=== PATIENT | female | born 1940 | race Caucasian/White ===

== ENCOUNTER 2018-09-20 10:22 | Emergency (ER) | payer MEDICARE ==
[~2018-09-20] VITALS: Ht 162.6 cm; Wt 61.2 kg
--- OUTSIDE RECORDS SUMMARY | ~2018-09-20 | XMS | Encounter Summary ---
Demographics + + + | Address | [address] | | | [place] [address] | + + + | Home Phone | | + + + | Preferred Language | Unknown | + + + | Marital Status | | + + + | Holiness Affiliation | 1041 | + + + | Race | Unknown | + + + | Ethnic Group | Unknown | + + + Author + + + | Author | [facility] | | | and [place] | + + + | Organization | [facility] | | | and [place] | + + + | Address | Unknown | + + + | Phone | Unavailable | + + + Support + + + + + | Name | Relationship | Address | Phone | + + + + + | Reji Luna | ECON | [address] | | | | [address], [place] | | | | | [address] | | + + + + + Care Team Providers + +------+ + | Care Meat Clerk Name | Role | Phone | + +------+ + | Majo Braswell | PCP | | + +------+ + Encounter Details +--------+ + + + + | Date | Type | Department | Care Team | Description | +--------+ + + + + | 07/28/ | Abstract | [facility] | Cristal Mccoy, | | | 2019 | | NEPHROLOGY [address] | MD [address] | | | | | [address] | [address] [place] | | | | | [place], [place] | [place] [address] | | | | | [address] | [phone] | | | | | [phone] | | | +--------+ + + + + Social History + + + +--------+------+ | Tobacco Use | Types | Packs/Day | Years | Date | | | | | Used | | + + + +--------+------+ | Former Smoker | Cigarettes | 0.3 | 1 | | + + + +--------+------+ + +---+---+---+ | Smokeless Tobacco: | | | | | Never Used | | | | + +---+---+---+ + + +---------+ + | Alcohol Use | Drinks/We | oz/Week | Comments | | | ek | | | + + +---------+ + | No | | | | + + +---------+ + + + + | Sex Assigned at | Date Recorded | | | | + + + | Not on file | | + + + + + + + | Job Start Date | Occupation | Industry | + + + + | Not on file | Not on file | Not on file | + + + + + + + + | Travel History | Travel Start | Travel End | + + + + + + | No recent travel history available. | + + documented as of this encounter Plan of Treatment +--------+---------+ + + + | Date | Type | Specialty | Care Team | Description | +--------+---------+ + + + | 08/15/ | Office | Nephrology | Cristal Mccoy W, | | | 2019 | Visit | | MD Tegan Jones | | | | | | [address] [place] | | | | | | [place] [address] | | | | | | [phone] | | | | | | | | +--------+---------+ + + + documented as of this encounter Procedures + +--------+ + + + | Procedure Name | Priori | Date/Time | Associated Diagnosis | Comments | | | ty | | | | + +--------+ + + + | EXTERNAL LAB: BUN | Routin | 07/27/2018 | | Results for this | | | e | | | procedure are in the | | | | | | results section. | + +--------+ + + + | EXTERNAL LAB: | Routin | 07/27/2018 | | Results for this | | GLUCOSE | e | | | procedure are in the | | | | | | results section. | + +--------+ + + + | EXTERNAL LAB: | Routin | 07/27/2018 | | Results for this | | ALBUMIN | e | | | procedure are in the | | | | | | results section. | + +--------+ + + + | EXTERNAL LAB: | Routin | 07/27/2018 | | Results for this | | PHOSPHORUS | e | | | procedure are in the | | | | | | results section. | + +--------+ + + + | EXTERNAL LAB: | Routin | 07/27/2018 | | Results for this | | CALCIUM | e | | | procedure are in the | | | | | | results section. | + +--------+ + + + | EXTERNAL LAB: CARBON | Routin | 07/27/2018 | | Results for this | | DIOXIDE | e | | | procedure are in the | | | | | | results section. | + +--------+ + + + | EXTERNAL LAB: | Routin | 07/27/2018 | | Results for this | | CHLORIDE | e | | | procedure are in the | | | | | | results section. | + +--------+ + + + | EXTERNAL LAB: | Routin | 07/27/2018 | | Results for this | | POTASSIUM | e | | | procedure are in the | | | | | | results section. | + +--------+ + + + | EXTERNAL LAB: SODIUM | Routin | 07/27/2018 | | Results for this | | | e | | | procedure are in the | | | | | | results section. | + +--------+ + + + | EXTERNAL LAB: | Routin | 07/27/2018 | | Results for this | | VITAMIN D, | e | | | procedure are in the | | 25-HYDROXY | | | | results section. | + +--------+ + + + | EXTERNAL LAB: PTH, | Routin | 07/27/2018 | | Results for this | | INTACT | e | | | procedure are in the | | | | | | results section. | + +--------+ + + + | EXTERNAL LAB: CBC | Routin | 07/27/2018 | | Results for this | | | e | | | procedure are in the | | | | | | results section. | + +--------+ + + + | EXTERNAL LAB: ARIANA | Routin | 07/27/2018 | | Results for this | | | e | | | procedure are in the | | | | | | results section. | + +--------+ + + + | EXTERNAL LAB: | Routin | 07/27/2018 | | Results for this | | CREATININE | e | | | procedure are in the | | | | | | results section. | + +--------+ + + + documented in this encounter Results External Lab: PTH, Intact (07/27/2018) + + + + + + | Component | Value | Ref Range | Performed | Pathologist | | | | | At | Signature | + + + + + + | PTH Intact, | 97.94 (A) | 12 - 88 | | | | External | | | | | + + + + + + + + | Specimen | + + | | + + External Lab: ROSAS (07/27/2018) + +-------+ + + + | Component | Value | Ref Range | Performed | Pathologist | | | | | At | Signature | + +-------+ + + + | ROSAS, | 29 | | EXTERNAL | | | External | | | LAB | | + +-------+ + + + + +---------+ + + | Performing | Address | City/State/Zipcode | Phone Number | | Organization | | | | + +---------+ + + | EXTERNAL LAB | | | | + +---------+ + + External Lab: Glucose (07/27/2018) + +-------+ + + + | Component | Value | Ref Range | Performed | Pathologist | | | | | At | Signature | + +-------+ + + + | Glucose, | 91 | | EXTERNAL | | | External | | | LAB | | + +-------+ + + + + +---------+ + + | Performing | Address | City/State/Zipcode | Phone Number | | Organization | | | | + +---------+ + + | EXTERNAL LAB | | | | + +---------+ + + External Lab: Albumin (07/27/2018) + +-------+ + + + | Component | Value | Ref Range | Performed | Pathologist | | | | | At | Signature | + +-------+ + + + | Albumin, | 3.9 | | EXTERNAL | | | External | | | LAB | | + +-------+ + + + + +---------+ + + | Performing | Address | City/State/Zipcode | Phone Number | | Organization | | | | + +---------+ + + | EXTERNAL LAB | | | | + +---------+ + + External Lab: Phosphorus (07/27/2018) + +-------+ + + + | Component | Value | Ref Range | Performed | Pathologist | | | | | At | Signature | + +-------+ + + + | Phosphorus, | 3.6 | | EXTERNAL | | | External | | | LAB | | + +-------+ + + + + +---------+ + + | Performing | Address | City/State/Zipcode | Phone Number | | Organization | | | | + +---------+ + + | EXTERNAL LAB | | | | + +---------+ + + External Lab: Calcium (07/27/2018) + +-------+ + + + | Component | Value | Ref Range | Performed | Pathologist | | | | | At | Signature | + +-------+ + + + | Calcium, | 10.1 | | EXTERNAL | | | External | | | LAB | | + +-------+ + + + + +---------+ + + | Performing | Address | City/State/Zipcode | Phone Number | | Organization | | | | + +---------+ + + | EXTERNAL LAB | | | | + +---------+ + + External Lab: Carbon Dioxide (07/27/2018) + +-------+ + + + | Component | Value | Ref Range | Performed | Pathologist | | | | | At | Signature | + +-------+ + + + | Carbon | 22 | | EXTERNAL | | | Dioxide, | | | LAB | | | External | | | | | + +-------+ + + + + +---------+ + + | Performing | Address | City/State/Zipcode | Phone Number | | Organization | | | | + +---------+ + + | EXTERNAL LAB | | | | + +---------+ + + External Lab: Chloride (07/27/2018) + +-------+ + + + | Component | Value | Ref Range | Performed | Pathologist | | | | | At | Signature | + +-------+ + + + | Chloride, | 108 | | EXTERNAL | | | External | | | LAB | | + +-------+ + + + + +---------+ + + | Performing | Address | City/State/Zipcode | Phone Number | | Organization | | | | + +---------+ + + | EXTERNAL LAB | | | | + +---------+ + + External Lab: Potassium (07/27/2018) + +-------+ + + + | Component | Value | Ref Range | Performed | Pathologist | | | | | At | Signature | + +-------+ + + + | Potassium, | 4.1 | | EXTERNAL | | | External | | | LAB | | + +-------+ + + + + +---------+ + + | Performing | Address | City/State/Zipcode | Phone Number | | Organization | | | | + +---------+ + + | EXTERNAL LAB | | | | + +---------+ + + External Lab: Sodium (07/27/2018) + +-------+ + + + | Component | Value | Ref Range | Performed | Pathologist | | | | | At | Signature | + +-------+ + + + | Sodium, | 144 | | EXTERNAL | | | External | | | LAB | | + +-------+ + + + + +---------+ + + | Performing | Address | City/State/Zipcode | Phone Number | | Organization | | | | + +---------+ + + | EXTERNAL LAB | | | | + +---------+ + + External Lab: Vitamin D, 25-Hydroxy (07/27/2018) + +-------+ + + + | Component | Value | Ref Range | Performed | Pathologist | | | | | At | Signature | + +-------+ + + + | Vitamin D, | 40 | | EXTERNAL | | | 25-Hydroxy, | | | LAB | | | External | | | | | + +-------+ + + + + + | Specimen | + + | Blood | + + + +---------+ + + | Performing | Address | City/State/Zipcode | Phone Number | | Organization | | | | + +---------+ + + | EXTERNAL LAB | | | | + +---------+ + + External Lab: CBC (07/27/2018) + +-------+ + + + | Component | Value | Ref Range | Performed | Pathologist | | | | | At | Signature | + +-------+ + + + | WBC, | 8.3 | | EXTERNAL | | | External | | | LAB | | + +-------+ + + + | HGB, | 13.3 | | EXTERNAL | | | External | | | LAB | | + +-------+ + + + | HCT, | 40.6 | | EXTERNAL | | | External | | | LAB | | + +-------+ + + + | PLT, | 324 | | EXTERNAL | | | External | | | LAB | | + +-------+ + + + | RBC, | 4.72 | | EXTERNAL | | | External | | | LAB | | + +-------+ + + + | MCV, | 86 | | EXTERNAL | | | External | | | LAB | | + +-------+ + + + | RDW, | 14.8 | | EXTERNAL | | | External | | | LAB | | + +-------+ + + + + +---------+ + + | Performing | Address | City/State/Zipcode | Phone Number | | Organization | | | | + +---------+ + + | EXTERNAL LAB | | | | + +---------+ + + External Lab: eGFR (07/27/2018) + +-------+ + + + | Component | Value | Ref Range | Performed | Pathologist | | | | | At | Signature | + +-------+ + + + | eGFR, | 39 | | EXTERNAL | | | External | | | LAB | | + +-------+ + + + + + | Specimen | + + | Blood | + + + +---------+ + + | Performing | Address | City/State/Zipcode | Phone Number | | Organization | | | | + +---------+ + + | EXTERNAL LAB | | | | + +---------+ + + External Lab: Creatinine (07/27/2018) + +-------+ + + + | Component | Value | Ref Range | Performed | Pathologist | | | | | At | Signature | + +-------+ + + + | Creatinine, | 1.31 | | EXTERNAL | | | External | | | LAB | | + +-------+ + + + + + | Specimen | + + | Blood | + + + +---------+ + + | Performing | Address | City/State/Zipcode | Phone Number | | Organization | | | | + +---------+ + + | EXTERNAL LAB | | | | + +---------+ + + documented in this encounter Visit Diagnoses Not on filedocumented in this encounter"
--- OUTSIDE RECORDS SUMMARY | ~2018-09-20 | XMS | Encounter Summary ---
Demographics + + + | Address | [address] | | | [place] [address] | + + + | Home Phone | | + + + | Preferred Language | Unknown | + + + | Marital Status | | + + + | Sabianism Affiliation | 1041 | + + + | Race | Unknown | + + + | Ethnic Group | Unknown | + + + Author + + + | Author | [facility] | | | and [place] | + + + | Organization | [facility] | | | and [place] | + + + | Address | Unknown | + + + | Phone | Unavailable | + + + Support + + + + + | Name | Relationship | Address | Phone | + + + + + | Reji Luna | ECON | [address] | | | | | [address], [place] | | | | | [address] | | + + + + + Care Team Providers + +------+ + | Care Wrapping Checker Name | Role | Phone | + +------+ + | Majo Braswell | PCP | | + +------+ + Reason for Visit +--------+ + | Reason | Comments | +--------+ + | Other | | +--------+ + Encounter Details +--------+ + + + + | Date | Type | Department | Care Team | Description | +--------+ + + + + | 08/05/ | Telephone | [facility] [place] | Nadine Cristal W, | Other | | 2019 | | NEPHROLOGY [address] | MD [address] | | | | | [address] | [address] [place] | | | | | [place], [place] | [place] [address] | | | | | [address] | [phone] | | | | | [phone] | | | +--------+ + + + [...] 08/15/ | Office | Nephrology | Cristal Mccoy, | | | 2019 | Visit | | MD Tegan Jones | | | | | | [address] [place] | | | | | | [place] [address] | | | | | | [phone] | | | | | | | | +--------+---------+ + + + documented as of this encounter Visit Diagnoses Not on filedocumented in this encounter"
--- OUTSIDE RECORDS SUMMARY | ~2018-09-20 | XMS | Clinical Summary ---
Demographics + + + | Address | [address] | | | [place] [address] | + + + | Home Phone | | + + + | Preferred Language | Unknown | + + + | Marital Status | | + + + | Roman Catholic Affiliation | 1013 | + + + | Race | Unknown | + + + | Ethnic Group | Unknown | + + + Author + + + | Author | [facility] | + + + | Organization | [facility] | + + + | Address | Unknown | + + + | Phone | Unavailable | + + + Support + + + + + | Name | Relationship | Address | Phone | + + + + + | Reji Rodarte | MAUREEN | [address] | | | | | [address] | | | | | [address] | | + + + + + Care Team Providers + +------+ + | Care Color Buffer Name | Role | Phone | + +------+ + | Mitchel Coleman MD | PP | Unavailable | + +------+ + Allergies + + + + + + | Active Allergy | Reactions | Severity | Noted | Comments | | | | | Date | | + + + + + + | Clonidine | Other (See Comments) | Medium | 09/22/19 | unknown | | Derivatives | | | 14 | | + + + + + + | Codeine | Other (See Comments) | Medium | 09/22/19 | unknown | | | | | 14 | | + + + + + + | Erythromycin | Other (See Comments) | Medium | 09/22/19 | Unknown | | | | | 14 | | + + + + + + Current Medications + + +--------+---------+------+------+-------+ | Prescription | Sig. | Disp. | Refills | Star | End | Statu | | | | | | t | Date | s | | | | | | Date | | | + + +--------+---------+------+------+-------+ | carvedilol (COREG) | Take 12.5 mg by | | | | | Activ | | 12.5 MG tablet | mouth 2 (two) times | | | | | e | | | daily with meals. | | | | | | + + +--------+---------+------+------+-------+ | lisinopril | Take 10 mg by mouth | | | | | Activ | | (ZESTRIL) 10 MG | 2 (two) times daily. | | | | | e | | tablet | | | | | | | + + +--------+---------+------+------+-------+ | furosemide (LASIX) | Take 20 mg by mouth | | | | | Activ | | 20 MG tablet | daily. | | | | | e | + + +--------+---------+------+------+-------+ | aspirin 81 MG EC | Take 81 mg by mouth | | | | | Activ | | tablet | daily with | | | | | e | | | breakfast. | | | | | | + + +--------+---------+------+------+-------+ | allopurinol | Take 100 mg by mouth | | | | | Activ | | (ZYLOPRIM) 100 MG | daily. | | | | | e | | tablet | | | | | | | + + +--------+---------+------+------+-------+ | Calcium | Take by mouth. | | | | | Activ | | Carb-Cholecalciferol | | | | | | e | | (CALCIUM 1000 + D) | | | | | | | | 1000-800 MG-UNIT | | | | | | | | TABS | | | | | | | + + +--------+---------+------+------+-------+ | hydrALAZINE | Take 1 tablet by | 270 | 3 | 04/ | | Activ | | (APRESOLINE) 100 MG | mouth 3 (three) | tablet | | 0/20 | | e | | tablet | times daily. | | | 14 | | | + + +--------+---------+------+------+-------+ Active Problems + + + | Problem | Noted Date | + + + | Pulmonary hypertension (HCC) | 09/29/2013 | + + + | Severe hypertension | | + + + | Renal mass | | + + + + + | Overview: reduced | + + + +---+ | Decreased renal function | | + +---+ | Left ventricular dysfunction | | + +---+ | Mitral valve regurgitation | | + +---+ | CAD (coronary artery disease) | | + +---+ Social History + +-------+ +--------+------+ | Tobacco Use | Types | Packs/Day | Years | Date | | | | | Used | | + +-------+ +--------+------+ | Never Smoker | | | | | + +-------+ +--------+------+ + + +---------+ + | Alcohol Use | Drinks/We | oz/Week | Comments | | | ek | | | + + +---------+ + | No | | | | + + +---------+ + + + + | Sex Assigned at | Date Recorded | | | | + + + | Not on file | | + + + Last Filed Vital Signs + + + + | Vital Sign | Reading | Time Taken | + + + + | Blood Pressure | 203/90 | 09/29/2013 10:50 AM PDT | + + + + | Pulse | 57 | 09/29/2013 10:50 AM PDT | + + + + | Temperature | 36.6 C (97.8 F) | 09/29/2013 10:50 AM PDT | + + + + | Respiratory Rate | 16 | 09/29/2013 10:50 AM PDT | + + + + | Oxygen Saturation | 94% | 09/29/2013 10:50 AM PDT | + + + + | Inhaled Oxygen | - | - | | Concentration | | | + + + + | Weight | 84.4 kg (186 lb) | 09/29/2013 10:50 AM PDT | + + + + | Height | 160 cm (5' 3") | 09/29/2013 10:50 AM PDT | + + + + | Body Mass Index | 32.95 | 09/29/2013 10:50 AM PDT | + + + + Plan of Treatment + + + + + | Health Maintenance | Due Date | Last Done | Comments | + + + + + | Vaccine: | | | | | Dtap/Tdap/Td (1 - | 0 | | | | Tdap) | | | | + + + + + | Vaccine: Zoster (1 | | | | | of 2) | 1 | | | + + + + + | DEXA SCAN SCREENING | | | | | | 6 | | | + + + + + | Vaccine: | | | | | Pneumococcal 65+ | 6 | | | | Low/Medium Risk (1 | | | | | of 2 - PCV13) | | | | + + + + + | Vaccine: Influenza | | | | | (Season Ended) | 9 | | | + + + + + Results Not on filefrom Last 3 Months Insurance + +--------+ +------+-------+ + | Payer | Benefi | Subscriber | Type | Phone | Address | | | t Plan | ID | | | | | | / | | | | | | | Group | | | | | + +--------+ +------+-------+ + | MEDICARE | MEDICA | [id number] | | | [address] | | | [place] | | | | [place] [address] | | | IP-OP | | | | | + +--------+ +------+-------+ + | [employer] [place] | MUTUAL | [id number] | | | | | | [place] | | | | | | | [place] | | | | | + +--------+ +------+-------+ + + +--------+ +--------+ + + | Guarantor Name | Accoun | Relation to | Date | Phone | Billing Address | | | t Type | Patient | of | | | | | | | | | | + +--------+ +--------+ + + | CAROLYN RODARTE | Person | Self [birth year] | Home: | [address] | | | al/Fam | | [phone] | [phone] [place] | | | [place] | | | [phone] | [phone] | + +--------+ +--------+ + +
--- OUTSIDE RECORDS SUMMARY | ~2018-09-20 | XMS | Encounter Summary ---
Demographics + + + | Address | [address] | | | [place] [address] | + + + | Home Phone | | + + + | Preferred Language | Unknown | + + + | Marital Status | | + + + | Judaism Affiliation | 1041 | + + + | Race | Unknown | + + + | Ethnic Group | Unknown | + + + Author + + + | Author | [facility] | | | and [place] | + + + | Organization | [facility] | | | and [place] | [...] [place], [place] | | | | | [address] | | + + + + + Care Team Providers + +------+ + | Care Military Pay Clerk Name | Role | Phone | [...] NEPHROLOGY [address] | MD [address] | | | | | [address] | [address] [place] | | | | | [place], [place] | [place] [address] | | | | | [address] | [phone] | | | | | [phone] | | | +--------+ + + + [...] | | | | | [place] [address] | | | | | | [phone] | | | | | | | | +--------+---------+ + + + documented as of this encounter Visit Diagnoses Not on filedocumented in this encounter"
--- OUTSIDE RECORDS SUMMARY | ~2018-09-20 | XMS | Encounter Summary ---
Demographics + + + | Address | [address] | | | [place] [address] | + + + | Home Phone | | + + + | Preferred Language | Unknown | + + + | Marital Status | | + + + | Evangelical Affiliation | 1041 | + + + | Race | Unknown | + + + | Ethnic Group | Unknown | + + + Author + + + | Author | [facility] | | | and [place] | + + + | Organization | [facility] | | | and [place] | + + + | Address | Unknown | + + + | Phone | Unavailable | + + + Support + + + + + | Name | Relationship | Address | Phone | + + + + + | Reji Luna | ECON | [address] | | | | [address], [place] | | | | | [address] | | + + + + + Care Team Providers + +------+ + | Care Electronics Engineer Name | Role | Phone | + +------+ + | Majo Braswell | PCP | | + +------+ + Encounter Details +--------+ + + + + | Date | Type | Department | Care Team | Description | +--------+ + + + + | 07/01/ | Orders Only | [facility] [place] | Cristal Mccoy W, | CKD (chronic kidney | | 2019 | | NEPHROLOGY [address] | MD [address] | disease) stage 3, | | | | [address] | [address] [place] | GFR 30-59 ml/min | | | | [place], [place] | [place] [address] | (HCC) (Primary Dx) | | | | [address] | [phone] | | | | | [phone] | | | +--------+ + + + [...] + + documented as of this encounter Progress Notes Gricelda Gutierrez RN - 07/01/2018 1054 PSTLabs for upcoming nephrology appointment sent to: [facility] documented in this encounter Plan of Treatment +--------+---------+ + + + | Date | Type | Specialty | Care Team | Description | +--------+---------+ + + + | 08/15/ | Office | Nephrology | Cristal Mccoy, | | | 2019 | Visit | | MD Tegan Jones | | | | | | [address] [place] | | | | | | [place] [address] | | | | | | [phone] | | | | | | | | +--------+---------+ + + + + +--------+ + + | Name | Priori | Associated Diagnoses | Order Schedule | | | ty | | | + +--------+ + + | CBC with Differential | Routin | CKD (chronic | Expected: | | | e | kidney disease) | 07/27/2018, Expires: | | | | stage 3, GFR 30-59 | 07/01/2019 | | | | ml/min | | + +--------+ + + | Renal Function Panel | Routin | CKD (chronic | Expected: | | | e | kidney disease) | 07/27/2018, Expires: | | | | stage 3, GFR 30-59 | 07/01/2019 | | | | ml/min | | + +--------+ + + | Vitamin D, Deficiency Screen | Routin | CKD (chronic | Expected: | | (25-Hydroxy) | e | kidney disease) | 07/27/2018, Expires: | | | | stage 3, GFR 30-59 | 07/01/2019 | | | | ml/min | | + +--------+ + + | Parathyroid Hormone, Intact | Routin | CKD (chronic | Expected: | | | e | kidney disease) | 07/27/2018, Expires: | | | | stage 3, GFR 30-59 | 07/01/2019 | | | | ml/min | | + +--------+ + + | Protein/Creatinine Ratio, Urine | Routin | CKD (chronic | Expected: | | | e | kidney disease) | 07/27/2018, Expires: | | | | stage 3, GFR 30-59 | 07/01/2019 | | | | ml/min (HCC) | | + +--------+ + + | Urinalysis With Microscopic | Routin | CKD (chronic | Expected: | | | e | kidney disease) | 07/27/2018, Expires: | | | | stage 3, GFR 30-59 | 07/01/2019 | | | | ml/min ([facility]) | | + +--------+ + + documented as of this encounter Visit Diagnoses + + | Diagnosis | + + | CKD (chronic kidney disease) stage 3, GFR 30-59 ml/min ([facility]) - Primary Chronic kidney | | disease, Stage III (moderate) | + + documented in this encounter"
--- OUTSIDE RECORDS SUMMARY | ~2018-09-20 | XMS | Clinical Summary ---
Demographics + + + | Address | [address] | | | [place] [address] | + + + | Home Phone | | + + + | Preferred Language | Unknown | + + + | Marital Status | | + + + | Jainism Affiliation | 1041 | + + + | Race | Unknown | + + + | Ethnic Group | Unknown | + + + Author + + + | Author | [facility] | | | and [place] | + + + | Organization | [facility] | | | and [place] [...] [address], [place] | | | | | [address] | | + + + + + Care Team Providers + +------+ + | Care Chief Passenger Ship Steward/Stewardess Name | Role | Phone | + +------+ + | Majo Braswell | PP | | + +------+ + Allergies + + + + + + | Active Allergy | Reactions | Severity | Noted | Comments | | | | | Date | | + + + + + + | Amoxicillin | Hives | | 08/02/19 | | | | | | 15 | | + + + + + + | Clonidine | Swelling | | 08/19/19 | | | | | | 13 | | + + + + + + | Codeine | Nausea And Vomiting | High | 06/09/19 | | | | | | 13 | | + + + + + + | Erythromycin | Other (See Comments) | Medium | 06/09/19 | Red blotchy | | | | | 13 | | + + + + + + Medications + + + +---------+------+------+-------+ | Medication | Sig | Dispensed | Refills | Star | End | Statu | | | | | | t | Date | s | | | | | | Date | | | + + + +---------+------+------+-------+ | aspirin 81 MG | Take 81 mg by mouth | | 0 | 02/2 | | Activ | | tablet | as needed for Pain. | | | 7/20 | | e | | | | | | 13 | | | + + + +---------+------+------+-------+ | multivitamin | Take 1 tablet by | | 0 | | | Activ | | tablet | mouth Daily as | | | | | e | | | needed. | | | | | | + + + +---------+------+------+-------+ | | Take 1 tablet by | | 0 | | | Activ | | [id number] | mouth Daily as | | | | | e | | NC PO | needed. | | | | | | + + + +---------+------+------+-------+ | cholecalciferol | Take 1,000 Units by | | 0 | | | Activ | | (VITAMIN D-3) 1,000 | mouth Daily. | | | | | e | | units capsule | | | | | | | + + + +---------+------+------+-------+ | benazepril | Take 20 mg by mouth | | 0 | | | Activ | | (LOTENSIN) 20 mg | 2 times daily. | | | | | e | | tablet | | | | | | | + + + +---------+------+------+-------+ | hydrALAZINE | Take 50 mg by mouth | | 0 | | | Activ | | (APRESOLINE) 50 MG | Daily. | | | | | e | | tablet | | | | | | | + + + +---------+------+------+-------+ | amLODIPine | Take 5 mg by mouth 2 | | 0 | | | Activ | | (NORVASC) 10 MG | times daily. | | | | | e | | tablet | | | | | | | + + + +---------+------+------+-------+ Active Problems + + + | Problem | Noted Date | + + + | Secondary hyperparathyroidism | 05/13/2016 | + + + | Renovascular hypertension | 12/05/2014 | + + + | CKD (chronic kidney disease) stage 3, GFR 30-59 ml/min | | + + + + + | Overview: Solitary right kidney. 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 UPCR=0.26 (06/02/12). | + + + +---+ | Hyperlipidemia | | + +---+ | Gout | | + +---+ | Arthritis | | + +---+ | Solitary kidney | | + +---+ | Hypertensive renovascular disease | | + +---+ + + | Overview: 07/27/[address] angiogram: Normally enhancing | | right kidney with calcified right renal artery with at least 50% | | proximal narrowing. 06/02/12 Serum franky 26, renin 0.1, ratio 260. | | 06/17/12 Urine franky 6.2 ug/24hr, urine sodium 161 meq/24h06/17/12 | | Urine catecholamines and fractionated metanephrines were normal. | + + + +---+ | Kidney donor | | + +---+ + + | Overview: To in 1975 | + + Encounters +--------+ + + + + | Date | Type | Specialty | Care Team | Description | +--------+ + + + + | 08/10/ | Office | | Cristal Mccoy, | CKD (chronic kidney | | 2019 | Visit | | MD | disease) stage 3, | | | | | | GFR 30-59 ml/min | | | | | | (HCC) (Primary Dx); | | | | | | Solitary kidney; | | | | | | Renovascular | | | | | | hypertension; | | | | | | Secondary | | | | | | hyperparathyroidism | | | | | | ([facility]) | +--------+ + + + + | 08/05/ | Telephone | | Cristal Mccoy, | Other | | 2018 | | | MD | | +--------+ + + + + | 07/29/ | Abstract | | Cristal Mccoy, | | | 2018 | | | MD | | +--------+ + + + + | 07/28/ | Abstract | | Cristal Mccoy, | | | 2018 | | | MD | | +--------+ + + + + | 07/01/ | Orders Only | | Cristal Mccoy, | CKD (chronic kidney | | 2018 | | | MD | disease) stage 3, | | | | | | GFR 30-59 ml/min | | | | | | (HCC) (Primary Dx) | +--------+ + + + + from Last 3 Months Social History + + + +--------+------+ | [...] recent travel history available. | + + Last Filed Vital Signs + + + + | Vital Sign | Reading | Time Taken | + + + + | Blood Pressure | 184/64 | 08/10/2018 1622 PDT | + + + + | Pulse | 65 | 08/10/2018 1542 PDT | + + + + | Temperature | 36.7 C (98 F) | 06/09/2012 1400 PST | + + + + | Respiratory Rate | 16 | 06/09/2012 1400 PST | + + + + | Oxygen Saturation | 97% | 08/10/20181541 PDT | + + + + | Inhaled Oxygen | - | - | | Concentration | | | + + + + | Weight | 65.6 kg (144 lb 10 | 08/10/20181541 PDT | | | oz) | | + + + + | Height | 157.5 cm (5' 2") | 02/17/20171302 PDT | + + + + | Body Mass Index | 26.45 | 02/17/20171302 PDT | + + + + Plan of Treatment +--------+---------+ + + + | Date | Type | Specialty | Care Team | Description | +--------+---------+ + + + | 08/15/ | Office | | Cristal Mccoy, | | | 2019 | Visit | | [address] | | | | | | [address] [place] | | | | | | [place] [address] | | | | | | [phone] | | | | | | | | +--------+---------+ + + + + + + + + | Health [...] | + + + + + | Adult Annual | | | | | Wellness Visit | 5 | | | + + + + + | Vaccine: Influenza | | | | | (Season Ended) | 9 | | | + + + + + Procedures + +--------+ + + + | Procedure Name | Priori | Date/Time | Associated Diagnosis | Comments | | | ty | | | | + +--------+ + + + | LABS - EXTERNAL SCAN | | 07/28/2018 | | Results for this | | | | 0:00 PST | | procedure are in the | | | | | | results section. | + +--------+ + + + | URINALYSIS WITH | Routin | 07/28/2018 | | Results for this | | MICROSCOPIC | e | | | procedure are in the | | | | | | results section. | + +--------+ + + + | EXTERNAL LAB: | Routin | 07/28/2018 | | Results for this | | URINALYSIS | e | | | procedure are in the | | | | | | results section. | + +--------+ + + + | LABS - EXTERNAL SCAN | | 07/27/2018 | | Results for this | | | | 0:00 PST | | procedure are in the | | | | | | results section. | + +--------+ + + + | EXTERNAL LAB: TOMA, | Routin | 07/27/2018 | | Results for this | | INTACT | e | | | procedure are in the | | | | | | results section. | + +--------+ + + + | EXTERNAL LAB: ROSAS | Routin | 07/27/2018 | | Results [...] +--------+ + + + | EXTERNAL LAB: EGFR | Routin | 07/27/2018 | | Results [...] section. | + +--------+ + + + from Last 3 Months Results External Lab: Urinalysis (07/28/2018) + + + + + + | Component | Value | Ref Range | Performed | Pathologist | | | | | At | Signature | + + + + + + | UA Blood, | negative | | | | | External | | | | | + + + + + + | UA Glucose, | normal | | | | | External | | | | | + + + + + + | UA Ketones, | negative | | | | | External | | | | | + + + + + + | UA Ph, | 5 | | | | | External | | | | | + + + + + + | UA | 100 | | | | | Proteins, | | | | | | External | | | | | + + + + + + | UA RBC, | 0 | | | | | External | | | | | + + + + + + | UA Specific | 1.016 | | | | | [place], | | | | | | External | | | | | + + + + + + | UA | negative | | | | | Leukocyte | | | | | | Esterase, | | | | | | External | | | | | + + + + + + LABS - EXTERNAL SCAN (07/28/2018 0:00 PST)Only the most recent of 2 results within the is included. + + + | Narrative | Performed At | + + + | Ordered by an | | | unspecified provider. | | + + + Urinalysis With Microscopic (07/28/2018) + + + + + + | Component | Value | Ref Range | Performed | Pathologist | | | | | At | Signature | + + + + + + | WBC UA | 2 | /HPF | | | + + + + + + | Color | Yellow | Light Yellow, | | | | | | Yellow | | | + + + + + + | Clarity | Clear | | | | + + + + + + | Bacteria, | negative | | | | | UA | | | | | + + + + + + | SQUAMOUS | 0-2 | 0 - 2 /LPF | | | | EPITHELIAL | | | | | | UA | | | | | + + + + + + | Nitrite, | Negative | Negative | | | | Urine | | | | | + + + + + + + + | Specimen | + + | Urine | + + External Lab: ROSAS (07/27/2018) + +-------+ + + + | Component | Value | Ref Range | Performed | Pathologist | | | | | At | Signature | + +-------+ + + + | BUN, | 29 | | EXTERNAL | | [...] | + +---------+ + + External Lab: PTH, Intact (07/27/2018) + + [...] + | | + + External Lab: CBC (07/27/2018) + [...] | | | + +---------+ + + from Last 3 Months Insurance + +--------+ +--------+-------+---------+--------+ | Payer | Benefi | Subscriber | Effect | Phone | Address | Type | | | t Plan | ID | finesse | | | | | | / | | Dates | | | | | | Group | | | | | | + +--------+ +--------+-------+---------+--------+ | [employer] | [employer] | [id number] | 05/25/19 | | | Medica | | | HEALTH | | 18-Pre | | | re | | | MDCR | | sent | | | | + +--------+ +--------+-------+---------+--------+ + +--------+ +--------+ + + | Guarantor Name | Accoun | Relation to | Date | Phone | Billing Address | | | t Type | Patient | of | | | | | | | | | | + +--------+ +--------+ + + | Carolyn Luna | Person | Self | [birth year] | [address] | | | al/Fam | | 1941 | [phone] | [place] [address] | | | lu | | | 3 (Home) | | + +--------+ +--------+ + + Advance Directives Patient has advance care planning documents on file. For more information, please contact:[facility] [place] [address]
--- OUTSIDE RECORDS SUMMARY | ~2018-09-20 | XMS | Clinical Summary ---
Demographics + + + | Address | [address] | | | [place] [address] | + + + | Home Phone | | + + + | Preferred Language | Unknown | + + + | Marital Status | | + + + | Alevism Affiliation | 1013 | + + + | Race | Unknown | + + + | Ethnic Group | Unknown | + + + Author + + + | Author | [facility] | + + + | Organization | [facility] | + + + | Address | Unknown | + + + | Phone | Unavailable | + + + Support + + + + + | Name | Relationship | Address | Phone | + + + + + | Reji Rodarte | MAUREEN | [address] | | | | | [address] [place] | | | | | [address] | | + + + + + Care Team Providers + +------+ + | Care Flour Blender Name | Role | Phone | + [...] +------+-------+ + | MEDICARE | MEDICA | [id number] | | | [address] | | | RE | | | | [place] [address] | | | IP-OP | | | | | + +--------+ +------+-------+ + | [employer] [place] | MUTUAL | [id number] | | | | | | OF | | | | | | | [place] | | | | | + +--------+ [...] | [address] | | | [address] | [address] | + +--------+ +--------+ + +
--- OUTSIDE RECORDS SUMMARY | ~2018-09-20 | XMS | Encounter Summary ---
Demographics + + + | Address | [address] | | | [place] [address] | + + + | Home Phone | | + + + | Preferred Language | Unknown | + + + | Marital Status | | + + + | Yarsani Affiliation | 1041 | + + + | Race | Unknown | + + + | Ethnic Group | Unknown | + + + Author + + + | Author | [facility] | | | and [place] | + + + | Organization | [facility] | | | and [place] [...] [address], [place] | | | | | [address] | | + + + + + Care Team Providers + +------+ + | Care Gre Instructor Name | Role | Phone | + +------+ + | Majo Braswell | PCP | | + +------+ + Reason for Visit + + + | Reason | Comments | + + + | Chronic Kidney | | | Disease, Stage III | | + + + Evaluate & Treat (Routine) + +--------+ + + + + | Status | Reason | Specialty | Diagnoses / | Referred By | Referred To | | | | | Procedures | Contact | Contact | + +--------+ + + + + | Authorized | | Nephrology | Diagnoses | | Mccoy, | | | | | Chronic | Schmidtgall, | Cristal W, | | | | | kidney | Albertina K, | [address] | | | | | disease, | [address]C [address] | | | | | stage 3 | [address] | [address] [place] | | | | | (moderate) | [address] | [place] | | | | | (HCC) | [place], | [address] Phone: | | | | | Solitary | [place] | [phone] | | | | | kidney | [address] | Fax: | | | | | Renovascular | Phone: | [phone] | | | | | | [phone] | | | | | | hypertension | Fax: | | | | | | Procedures | [phone] | | | | | | AR OFFICE | | | | | | | OUTPATIENT | | | | | | | VISIT 25 | | | | | | | MINUTES | | | + +--------+ + + + + Encounter Details +--------+---------+ + + + | Date | Type | Department | Care Team | Description | +--------+---------+ + + + | 08/10/ | Office | [facility] | Cristal Mccoy W, | CKD (chronic kidney | | 2019 | Visit | NEPHROLOGY [address] | disease) stage 3, | | | | [address] | [address] [place] | GFR 30-59 ml/min | | | | [place], [place] | [place] [address] | ([facility]) (Primary Dx); | | | | [address] | [phone] | Solitary kidney; | | | | [phone] | | Renovascular | | | | | | hypertension; | | | | | | Secondary | | | | | | hyperparathyroidism | | | | | | ([facility]) | +--------+---------+ + + + Social History + + [...] + + documented as of this encounter Last Filed Vital Signs + + + + | Vital Sign | Reading | Time Taken | + + + + | Blood Pressure | 184/64 | 08/10/2018 1622 PDT | + + + + | Pulse | 65 | 08/10/20181541 PDT | + + + + | Temperature | - | - | + + + + | Respiratory Rate | - | - | + + + + | Oxygen Saturation | 97% | 08/10/20181541 PDT | + + + + | Inhaled Oxygen | - | - | | Concentration | | | + + + + | Weight | 65.6 kg (144 lb 10 | 08/10/20181541 PDT | | | oz) | | + + + + | Height | - | - | + + + + | Body Mass Index | 26.45 | 02/17/2017 1303 PDT | + + + + documented in this encounter Patient Instructions Patient Instructions Cristal Mccoy MD - 08/10/2018 16:00 PDTTo-do Check your blood pressure at home. Goal is 130/80. documented in this encounter Progress Notes Cristal Mccoy MD - 08/10/2018 1600 PDT Nephrology Follow-up Visit Visit date: 08/10/2018 Primary care provider: SEDRICK Conway Follow-up: 1 year Chief Complaint Patient presents with Chronic Kidney Disease, Stage III HPI: Carolyn Luna is a 77 y.o. female with renovascular hypertension, proteinuric CKD, hi story of kidney donation to brother in 1975. Pt states she has been very stressed. Pt reports she had a fall in Jan 2018, during the t [place] of [employer]. Pt landed hard on her hands, but no fractures. Pt did not go to the ER or see her primary care provider for the fall. Pt also reports an incident where she lost her balance, where pt felt like she was leaning to one side. Her friend was able to brace her and help her to her car. No slurred speech or loss of consciousness. Pt is taking all her anti-hypertensive medications, as prescribed. Pt denies missed doses. Pt reports she has been drinking a lot of Coke-Cola. Pt denies alcohol intake. Pt is not smoking cigarettes. ROS: A 6-system review was performed, and was negative or noncontributory other than as sta keely above. PMH: Patient Active Problem List Diagnosis Date Noted Secondary hyperparathyroidism (HCC) 05/13/2016 Renovascular hypertension 12/05/2014 Solitary kidney Hypertensive renovascular disease Note Last Updated: 06/28/2013 07/27/[address] angiogram: Normally enhancing right kidney with calcified right renal artery with at least 50% proximal narrowing. 06/02/12 Serum franky 26, renin 0.1, ratio 260. 06/17/12 Urine franky 6.2 ug/24hr, urine sodium 161 meq/24hr 06/17/12 Urine catecholamines and fractionated metanephrines were normal. Kidney donor Note Last Updated: 06/28/2013 To brother in 1975 Hyperlipidemia Gout Arthritis CKD (chronic kidney disease) stage 3, GFR 30-59 ml/min ([facility]) Note Last Updated: 06/09/2012 Solitary right kidney. 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 UPCR=0.26 (06/02). Outpatient Prescriptions Marked as Taking for the 08/10/18 encounter (Office Visit) with Tamra Mccoy MD Medication Sig Dispense Refill amLODIPine (NORVASC) 10 MG tablet Take 5 mg by mouth 2 times daily. aspirin 81 MG tablet Take 81 mg by mouth as needed for Pain. benazepril (LOTENSIN) 20 mg tablet Take 20 mg by mouth 2 times daily. cholecalciferol (VITAMIN D-3) 1,000 units capsule Take 1,000 Units by mouth Daily. hydrALAZINE (APRESOLINE) 50 MG tablet Take 50 mg by mouth Daily. Physical Exam: Vitals: 08/10/18 1542 08/10/18 1622 BP: 200/70 184/64 Pulse: 65 SpO2: 97% Weight: 65.6 kg (144 lb 10 oz) Constitutional: Appears well-developed and well-nourished. No distress. Cardiovascular: Normal rate, regular rhythm and normal heart sounds. 3/6 systolic murmur @ RUSB. No peripheral edema. Lungs: Respiratory effort normal and breath sounds normal. No crackles or wheezes. Abdominal: Soft. Bowel sounds are present. Skin: Skin is warm. Neurological: Alert. Memory intact. Reviewed labs with patient. Abstract on 07/29/2018 Component Date Value Ref Range Status UA Blood, External 07/28/2018 negative Final UA Glucose, External 07/28/2018 normal Final UA Ketones, External 07/28/2018 negative Final UA Ph, External 07/28/2018 5 Final UA Proteins, External 07/28/2018 100 Final UA RBC, External 07/28/2018 0 Final UA Specific [place], External 07/28/2018 1.016 Final UA Leukocyte Esterase, External 07/28/2018 negative Final WBC UA 07/28/2018 2 /HPF Final Color 07/28/2018 Yellow Light Yellow, Yellow Final Clarity 07/28/2018 Clear Final Bacteria, UA 07/28/2018 negative Final SQUAMOUS EPITHELIAL UA 07/28/2018 0-2 0 - 2 /LPF Final Nitrite, Urine 07/28/2018 Negative Negative Final Abstract on 07/28/2018 Component Date Value Ref Range Status Creatinine, External 07/27/2018 1.31 Final eGFR, External 07/27/2018 39 Final WBC, External 07/27/2018 8.3 Final HGB, External 07/27/2018 13.3 Final HCT, External 07/27/2018 40.6 Final PLT, External 07/27/2018 324 Final RBC, External 07/27/2018 4.72 Final MCV, External 07/27/2018 86 Final RDW, External 07/27/2018 14.8 Final Vitamin D, 25-Hydroxy, External 07/27/2018 40 Final Sodium, External 07/27/2018 144 Final Potassium, External 07/27/2018 4.1 Final Chloride, External 07/27/2018 108 Final Carbon Dioxide, External 07/27/2018 22 Final Calcium, External 07/27/2018 10.1 Final Phosphorus, External 07/27/2018 3.6 Final Albumin, External 07/27/2018 3.9 Final Glucose, External 07/27/2018 91 Final BUN, External 07/27/2018 29 Final PTH Intact, External 07/27/2018 97.94* 12 - 88 Final ASSESSMENT AND PLAN: 1. CKD (chronic kidney disease) stage 3, GFR 30-59 ml/min ([facility]) Due to solitary kidney and hypertensive / renovascular disease. Serum creatinine is above prior baseline. UA is unremarkable. 2. Solitary kidney Pt is a kidney donor. 3. Renovascular hypertension Clinic BP is markedly elevated. Pt had been able to achieve BP readings of 140/70 in the past. Pt denies missed medication s. -Counseled on lifestyle modifications for optimal BP. Low sodium diet, manage stress yojana r, decrease caffeinated drinks. -Advised pt to increase hydralazine to 50 mg BID. -Monitor home BP readings. 4. Secondary hyperparathyroidism (HCC) Serum calcium and phos levels are at goal. Vit D a nd PTH levels are acceptable. Return in 1 year. Cbc, renal, uric acid, ua, upcr. 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
--- OUTSIDE RECORDS SUMMARY | ~2018-09-20 | XMS | Encounter Summary ---
Demographics + + + | Address | [address] | | | [place] [address] | + + + | Home Phone | | + + + | Preferred Language | Unknown | + + + | Marital Status | | + + + | Uatsdin Affiliation | 1041 | + + + | Race | Unknown | + + + | Ethnic Group | Unknown | + + + Author + + + | Author | [facility] | | | and [place] | + + + | Organization | [facility] | | | and [place] [...] [address], [place] | | | | | [address] | | + + + + + Care Team Providers + +------+ + | Care Product Advisor Name | Role | Phone | + [...] NEPHROLOGY [address] | MD [address] | | | | | [address] | [address] [place] | | | | | [place], [place] | [place] [address] | | | | | [address] | [phone] | | | | | [phone] | | | +--------+ + + + [...] [place] | | | | | | [place] [address] | | | | | | [phone] | | | | | | | [...]
--- OUTSIDE RECORDS SUMMARY | ~2018-09-20 | XMS | Encounter Summary ---
Demographics + + + | Address | [address] | | | [place] [address] | + + + | Home Phone | | + + + | Preferred Language | Unknown | + + + | Marital Status | | + + + | Mosque Affiliation | 1041 | + + + | Race | Unknown | + + + | Ethnic Group | Unknown | + + + Author + + + | Author | [facility] | | | and [place] | + + + | Organization | [facility] | | | and [...] [address], [place] | | | | | [address] | | + + + + + Care Team Providers + +------+ + | Care Supervisor Blast Furnace Name | Role | Phone | + +------+ + | Majo Braswell | PCP | | + +------+ + Encounter Details +--------+ + + + + | Date | Type | Department | Care Team | Description | +--------+ + + + + | 07/29/ | Abstract | [facility] | Cristal Mccoy, | | | 2019 | | NEPHROLOGY [address] | MD [address] | | | | | [address] | [address] [place] | | | | | [place], [place] | [place] [address] | | | | | [address] | [phone] | | | | | [phone] | | | +--------+ + + + [...] [place] | | | | | | [place] [address] | | | | | | [phone] | | | | | | | [...] + + documented in this encounter Results Urinalysis With Microscopic (07/28/2018) + + + [...] | Urine | + + External Lab: Urinalysis (07/28/2018) + + + [...] | 1.016 | | | | | [place], | | | | | | External | | | | | + + + + + + | UA | negative | | | | | Leukocyte | | | | | | Esterase, | | | | | | External | | | | | + + + + + + documented in this encounter Visit Diagnoses Not on filedocumented in this encounter"
--- OUTSIDE RECORDS SUMMARY | ~2018-09-20 | XMS | Clinical Summary ---
Demographics + + + | Address | [address] | | | [place] [address] | + + + | Home Phone | | + + + | Preferred Language | Unknown | + + + | Marital Status | | + + + | Moravian Affiliation | 1041 | + + + | Race | Unknown | + + + | Ethnic Group | Unknown | + + + Author + + + | Author | [facility] | | | and [place] | + + + | Organization | [facility] | | | and [place] | [...] [address], [place] | | | | | [address] | | + + + + + Care Team Providers + +------+ + | Care Dye House Supervisor Name | Role | Phone | + [...] 0 | | | Activ | | [id number] | mouth Daily as | | | [...] hyperparathyroidism | | | | | | ([facility]) | +--------+ + + + + | [...] | | | | | | [place] [address] | | | | | | [phone] | | | | | | | [...] | 1.016 | | | | | [place], | | | | | | External [...] | [employer] | [employer] | [id number] | 05/25/19 | | | [employer]ica | [...] | 1941 | [phone] | [place] [address] | | | lu | | | 3 (Home) | | + +--------+ +--------+ + + Advance Directives Patient has advance care planning documents on file. For more information, please contact:[facility] [place] [address]
--- OUTSIDE RECORDS SUMMARY | ~2018-09-20 | XMS | Encounter Summary ---
Demographics + + + | Address | [address] | | | [place] [address] | + + + | Home Phone | | + + + | Preferred Language | Unknown | + + + | Marital Status | | + + + | Jain Affiliation | 1041 | + + + | Race | Unknown | + + + | Ethnic Group | Unknown | + + + Author + + + | Author | [facility] | | | and [place] | + + + | Organization | [facility] | | | and [place] [...] [address], [place] | | | | | [address] | | + + + + + Care Team Providers + +------+ + | Care Director Of Dementia Operations Name | Role | Phone | + [...] NEPHROLOGY [address] | MD [address] | | | | | [address] | [address] [place] | | | | | [place], [place] | [place] [address] | | | | | [address] | [phone] | | | | | [phone] | | | +--------+ + + + [...] [place] | | | | | | [place] [address] | | | | | | [phone] | | | | | | | [...] | 1.016 | | | | | [place], | | | | | | External [...]
--- OUTSIDE RECORDS SUMMARY | ~2018-09-20 | XMS | Encounter Summary ---
Demographics + + + | Address | [address] | | | [place] [address] | + + + | Home Phone | | + + + | Preferred Language | Unknown | + + + | Marital Status | | + + + | Christianity Affiliation | 1041 | + + + | Race | Unknown | + + + | Ethnic Group | Unknown | + + + Author + + + | Author | [facility] | | | and [place] | + + + | Organization | [facility] | | | and [place] [...] [address], [place] | | | | | [address] | | + + + + + Care Team Providers + +------+ + | Care Back Roll Lathe Operator Name | Role | Phone | + [...] | | disease, | PA-C [address] | | | | | stage 3 | [address] | [address] [place] | | | | | (moderate) | [address] | [place] | | | | | (HCC) | [place], | [address] Phone: | | | | | Solitary | [place] | [phone] | | | | | kidney | [address] | Fax: | | | | | Renovascular | Phone: | [phone] | | | | | | [phone] | | | | | | hypertension | Fax: | | | | | | Procedures | [phone] | | | | | | PA OFFICE | | | | | | | OUTPATIENT | | | | | | | VISIT 25 | | | | | | | MINUTES | | | + +--------+ + + + + Encounter Details +--------+---------+ + + + | Date | Type | Department | Care Team | Description | +--------+---------+ + + + | 08/10/ | Office | [facility] | Cristal Mccoy W, | CKD (chronic kidney | | 2019 | Visit | NEPHROLOGY [address] | disease) stage 3, | | | | [address] | [address] [place] | GFR 30-59 ml/min | | | | [place], [place] | [place] [address] | ([facility]) (Primary Dx); | | | | [address] | [phone] | Solitary kidney; | | | | [phone] | | Renovascular | | | | | | hypertension; | | | | | | Secondary | | | | | | hyperparathyroidism | | | | | | ([facility]) | +--------+---------+ + + + Social History [...] stage 3, GFR 30-59 ml/min ([facility]) Note Last Updated: 06/09/2012 Solitary right kidney. [...] RBC, External 07/28/2018 0 Final UA Specific [place], External 07/28/2018 1.016 Final UA Leukocyte Esterase, [...] stage 3, GFR 30-59 ml/min ([facility]) Due to solitary kidney and hypertensive / [...] | | | | | | [place] [address] | | | | | | [phone] | | | | | | | [...]
--- OUTSIDE RECORDS SUMMARY | ~2018-09-20 | XMS | Encounter Summary ---
Demographics + + + | Address | [address] | | | [place] [address] | + + + | Home Phone | | + + + | Preferred Language | Unknown | + + + | Marital Status | | + + + | Restorationism Affiliation | 1041 | + + + | Race | Unknown | + + + | Ethnic Group | Unknown | + + + Author + + + | Author | [facility] | | | and [place] | + + + | Organization | [facility] | | | and [place] [...] [address], [place] | | | | | [address] | | + + + + + Care Team Providers + +------+ + | Care Lead Refinery Supervisor Name | Role | Phone | [...] NEPHROLOGY [address] | [address] | disease) stage 3, | | | | [address] | [address] [place] | GFR 30-59 ml/min | | | | [place], [place] | [place] [address] | (HCC) (Primary Dx) | | | | [address] | [phone] | | | | | [phone] | | | +--------+ + + + [...] | | | | | | [place] [address] | | | | | | [phone] | | | | | | | [...] | 07/01/2019 | | | | ml/min ([facility]) | | + +--------+ + + documented as of this encounter Visit Diagnoses + + | Diagnosis | + + | CKD (chronic kidney disease) stage 3, GFR 30-59 ml/min ([facility]) - Primary Chronic kidney | | disease, Stage III (moderate) | + + documented in this encounter"
[~2018-09-20 10:22] MED LIST: ASPIRIN81 MG PO; BYSTOLIC5 MG PO; CHLORTHALIDONE25 MG PO; HYDRALAZINE HCL50 MG PO; VERAPAMIL ER240 MG PO; ZYLOPRIM100 MG PO
[2018-09-20] MEDS ORDERED: BENAZEPRIL HCL20 MG PO (10:34)
[2018-09-20] MEDS ORDERED: AMLODIPINE BESY10 MG PO (10:34)
[2018-09-20] MEDS ORDERED: VITAMIN D31000 UNIT PO (10:35)
[2018-09-20] MEDS ORDERED: FAMCICLOVIR500 MG PO (10:58)
== END 2018-09-20 11:13 | disposition home or self-care (01) ==
LOC: ED 10:22
DX: B02.9 Zoster without complications (principal); I12.9 Hypertensive chronic kidney disease with stage 1 through stage 4 chronic kidney disease, or unspecified chronic kidney disease; N18.3 Chronic kidney disease, stage 3 (moderate); Z88.0 Allergy status to penicillin; Z88.5 Allergy status to narcotic agent; Z88.1 Allergy status to other antibiotic agents; Z79.899 Other long term (current) drug therapy; Z79.82 Long term (current) use of aspirin
CPT/HCPCS: 99282

== ENCOUNTER 2021-01-01 15:05 | Emergency (ER) | payer MEDICARE ==
[~2021-01-01] VITALS: Ht 162.6 cm; Wt 61.2 kg
[~2021-01-01 15:05] MED LIST changes: +AMLODIPINE BESY10 MG PO; +BENAZEPRIL HCL20 MG PO; +FAMCICLOVIR500 MG PO; +VITAMIN D31000 UNIT PO
== END 2021-01-01 16:39 | disposition home or self-care (01) ==
LOC: ED 15:05
DX: S60.212A Contusion of left wrist, initial encounter (principal); S40.011A Contusion of right shoulder, initial encounter; W18.30XA Fall on same level, unspecified, initial encounter; I12.9 Hypertensive chronic kidney disease with stage 1 through stage 4 chronic kidney disease, or unspecified chronic kidney disease; N18.30 Chronic kidney disease, stage 3 unspecified; M10.9 Gout, unspecified; Z88.0 Allergy status to penicillin; Z88.1 Allergy status to other antibiotic agents; Z88.5 Allergy status to narcotic agent; Z79.899 Other long term (current) drug therapy
CPT/HCPCS: 73030; 73110; 99283-25

== ENCOUNTER 2021-06-13 10:39 | Emergency (ER) | payer MEDICARE ==
[~2021-06-13] VITALS: Ht 162.6 cm; Wt 65.0 kg
--- NOTE | 2021-06-15 11:43 | EKG ---
[facility] [address] [facility] [place], [place] [address] Signed Atrial fibrillation with rapid ventricular response Minimal voltage criteria for LVH, may be normal variant ( [place] product ) Anterior infarct , age undetermined ST \T\ T wave abnormality, consider lateral ischemia Abnormal ECG No previous ECGs available Confirmed by PRICE RENO MD ([id number]) on 06/15/2021 11:43:38 AM Electronically Signed By: PRCIE RENO MD 06/15/21 1143 PATIENT NAME: MARIA LUISA RODARTE Electrocardiogram DATE OF : 40 PHYSICIAN: PRICE RENO MD REPORT #: [id number] REPORT IS CONFIDENTIAL AND NOT TO BE RELEASED WITHOUT AUTHORIZATION
== END 2021-06-13 16:38 | disposition short-term general hospital (02) ==
LOC: ED 10:39
DX: A41.9 Sepsis, unspecified organism (principal); R65.20 Severe sepsis without septic shock; N17.9 Acute kidney failure, unspecified; I48.91 Unspecified atrial fibrillation; J18.9 Pneumonia, unspecified organism; Z20.822 Contact with and (suspected) exposure to COVID-19; M10.9 Gout, unspecified; I12.9 Hypertensive chronic kidney disease with stage 1 through stage 4 chronic kidney disease, or unspecified chronic kidney disease; N18.30 Chronic kidney disease, stage 3 unspecified; Z88.0 Allergy status to penicillin; Z88.5 Allergy status to narcotic agent; Z88.1 Allergy status to other antibiotic agents; Z79.899 Other long term (current) drug therapy
CPT/HCPCS: 51702; 71045; 80053; 81001; 83605; 83880; 84484; 85025; 87088; 93005; 93010; 99285-25; C9803; G0480; J0282; J0692; J7040; U0003